=== PATIENT | female | born 1945 | race American Indian/Alaskan Native ===

== ENCOUNTER 2020-06-26 13:58 | Emergency (ER) | payer MEDICARE ==
--- NOTE | 2020-06-26 14:12 | Event Note ---
ED Screening Note Date of service: 06/26/20 Time: 14:10 ED Screening Note: Patient was brought in by her son with complaints of strokelike symptoms. Son reports that 4 days ago he noticed that patient has had increasing weakness in her right upper and right lower extremity, and she is been having difficulty focusing and expressing herself. He states that she had a stroke 3 years ago with right sided residual deficit with mainly in her right upper extremity. He states that he offered to bring her 4 days ago but she did not want to come to the hospital. She went to a local primary care doctor today and told her she need to come to the ER. This initial assessment/diagnostic orders/clinical plan/treatment(s) is/are subject to change based on patients health status, clinical progression and re- assessment by fellow clinical providers in the ED. Further treatment and workup at subsequent clinical providers discretion. Patient/guardian urged not to elope from the ED as their condition may be serious if not clinically assessed and managed. Initial orders include: Labs, EKG, chest x-ray, head CT
--- NOTE | 2020-06-26 14:45 | XRay Report ---
CHEST 2 VIEWS INDICATION: CVA. COMPARISON: None FINDINGS: Support devices: None. Heart: Within normal limits. Lungs/pleura: No acute air space or interstitial disease. No pneumothorax. Additional findings: None. IMPRESSION: No acute findings. Signer Name: Robb Patterson Jr, MD Signed: 06/26/2020 2:40 PM Workstation Name: [id number]
[2020-06-26 15:18] LABS: Basophils # (Auto) 0.1 K/mm3 (0.0-0.1); Basophils % (Auto) 0.9 % (0.0-1.8); Eosinophils # (Auto) 0.3 K/mm3 (0.0-0.4); Eosinophils % (Auto) 5.6 % (0.0-4.3); Hematocrit 44.4 % (30.3-42.9); Hemoglobin 14.2 gm/dl (10.1-14.3); Lymphocytes # (Auto) 1.8 K/mm3 (1.2-5.4); Lymphocytes % (Auto) 31.4 % (13.4-35.0); Mean Corpuscular HGB Conc 32 % (30-34); Mean Corpuscular Volume 98 fl (79-97); Monocytes # (Auto) 0.6 K/mm3 (0.0-0.8); Monocytes % (Auto) 9.7 % (0.0-7.3); Platelet Count 246 K/mm3 (140-440); Red Blood Count 4.54 M/mm3 (3.65-5.03); Red Cell Distribution Width 14.8 % (13.2-15.2)
[2020-06-26 15:28] LABS: INR 0.99 (0.87-1.13)
[2020-06-26 15:29] LABS: Partial Thromboplastin Time 29.8 Sec. (24.2-36.6)
--- NOTE | 2020-06-26 15:37 | Cat Scan Report ---
CT HEAD WITHOUT CONTRAST INDICATION / CLINICAL INFORMATION: Right-sided weakness 4 days ago. TECHNIQUE: Axial imaging performed from the skull apex through the skull base without the use of cont rast. Sagittal and coronal reformatted images. All CT scans at this location are performed using CT dose reduction for ALARA by means of automated exposure control. COMPARISON: MR brain dated 02/16/2016 FINDINGS: CEREBRAL PARENCHYMA: There is a large area of edema throughout the left frontal white matter measurin g up to 6.4 x 3.7 cm in axial plane. Mild sulcal effacement is present in the left frontal region. Un derlying mass in this area is suspected until proven otherwise. Age-appropriate cortical volume loss is noted. No chronic infarct. The remaining brain parenchyma is unremarkable. HEMORRHAGE: None. EXTRA-AXIAL SPACES: Normal in size and morphology for the patient's age. VENTRICULAR SYSTEM: Normal in size and morphology for the patient's age. MIDLINE SHIFT OR HERNIATION: None. CEREBELLUM / BRAINSTEM: No significant abnormality. CALVARIUM: No significant abnormality. ORBITS: Normal as visualized. PARANASAL SINUSES / MASTOID AIR CELLS: Normal as visualized. SOFT TISSUES of HEAD: No significant abnormality. ADDITIONAL FINDINGS: None. IMPRESSION: Large area of edema is identified throughout the left frontal lobe concerning for an underlying brain mass. Underlying abscess could also be considered. Further evaluation with MRI with and without cont rast is recommended. Signer Name: Robb Patterson Jr, MD Signed: 06/26/2020 3:32 PM Workstation Name: [id number]
[2020-06-26 15:38] LABS: Alanine Aminotransferase 19 units/L (7-56); Albumin 3.8 g/dL (3.9-5); Blood Urea Nitrogen 15 mg/dL (7-17); Calcium 9.4 mg/dL (8.4-10.2); Hemolysis Index 9
[2020-06-26 15:44] LABS: BUN/Creatinine Ratio 25
--- NOTE | 2020-06-26 19:50 | Emergency Department Report ---
ED Neuro Deficit HPI - General Chief Complaint: Neuro Symptoms/Deficit Stated Complaint: POSSIBLE STROKE/RT ARM/LEG NO MOTION Time Seen by Provider: 06/26/20 14:09 Source: patient Mode of arrival: Ambulatory Limitations: No Limitations - History of Present Illness Initial Comments: Chief complaint: "I had a stroke." HPI: This is a 75-year-old female with history of CVA, hypertension, tobacco dependence who presents with right-sided weakness and speech disturbance. Symptoms onset on 4 days ago. Patient refused medical care. Patient was evaluated by PCP today. PCP referred patient to the emergency department. Patient has right arm right leg weakness. She has trouble getting her words out. -: Gradual, days(s) (4 days) Location: speech, right arm, right leg History of same: Yes (r hand numbness residual) Severity: moderate Quality: weak Improves With: none Worsens With: none On Anticoagulants: No Context: gradual onset Associated Symptoms: other (speech difficulty, right arm/leg weakness) - Related Data Home Medications: Previous Rx's Medication Instructions Recorded Last Taken Type methOCARBAMOL [Robaxin TAB] 500 mg PO BID #14 tab 02/21/13 Unknown Rx traMADoL [Ultram 50 MG tab] 50 mg PO Q4HR PRN #15 tablet 02/21/13 Unknown Rx Aspirin 325 mg PO QDAY #30 tablet 02/16/16 Unknown Rx Simvastatin (Nf) [Zocor TAB] 20 mg PO QHS #30 tablet 02/16/16 Unknown Rx amLODIPine 5 mg PO QDAY tablet 02/16/16 Unknown Rx atenoloL [Tenormin] 25 mg PO QDAY tablet 02/16/16 Unknown Rx Allergies/Adverse Reactions: Allergies Allergy/AdvReac Type Severity Reaction Status Date / Time Penicillins Allergy Rash Verified 02/21/13 13:47 ED Review of Systems ROS: Stated complaint: POSSIBLE STROKE/RT ARM/LEG NO MOTION Other details as noted in HPI Comment: All other systems reviewed and negative Constitutional: denies: fever, malaise Respiratory: denies: cough, shortness of breath Cardiovascular: denies: chest pain Gastrointestinal: denies: abdominal pain, nausea, vomiting Neurological: weakness ED Past Medical Hx - Past Medical History Previous Medical History?: Yes Hx Hypertension: Yes Hx CVA: Yes (RT arm weakness) - Surgical History Past Surgical History?: Yes Additional Surgical History: carpel tunnel sx to left hand - Social History Smoking Status: Current Every Day Smoker Substance Use Type: Alcohol - Medications Home Medications: Home Medications Medication Instructions Recorded Confirmed Last Taken Type methOCARBAMOL [Robaxin TAB] 500 mg PO BID #14 tab 02/21/13 02/15/16 Unknown Rx traMADoL [Ultram 50 MG tab] 50 mg PO Q4HR PRN #15 tablet 02/21/13 02/15/16 Unknown Rx Aspirin 325 mg PO QDAY #30 tablet 02/16/16 Unknown Rx Simvastatin (Nf) [Zocor TAB] 20 mg PO QHS #30 tablet 02/16/16 Unknown Rx amLODIPine 5 mg PO QDAY tablet 02/16/16 Unknown Rx atenoloL [Tenormin] 25 mg PO QDAY tablet 02/16/16 Unknown Rx ED Neuro Physical Exam - General Limitations: No Limitations General appearance: alert, in no apparent distress Suspected Stroke: Yes - Head Head exam: Present: atraumatic, normocephalic - Eye Eye exam: Present: normal appearance - ENT ENT exam: Present: mucous membranes moist - Neck Neck exam: Present: normal inspection, full ROM - Respiratory Respiratory exam: Present: normal lung sounds bilaterally. Absent: respiratory distress, wheezes, rales, rhonchi - Cardiovascular Cardiovascular Exam: Present: regular rate, normal rhythm, normal heart sounds. Absent: systolic murmur, diastolic murmur, rubs, gallop - GI/Abdominal GI/Abdominal exam: Present: soft, normal bowel sounds. Absent: distended, tenderness, guarding, rebound - Extremities Exam Extremities exam: Present: other (right hand in fist ) - Back Exam Back exam: Present: normal inspection - Neurological Exam Neurological exam: Present: alert, oriented X3 - NIHSS Assessment Interval: Baseline 1a. Level of Consciousness: alert/keenly responsive 1b. LOC Questions: answers 1 question correctly 1c. LOC Commands: performs tasks correctly 2. Best Gaze: normal 3. Visual: no visual loss 4. Facial Palsy: normal symmetrical movement 5b. Motor Arm Right: drift 5a. Motor Arm Left: no drift 6a. Motor Leg Left: no drift 6b. Motor Leg Right: some gravity effort 7. Limb Ataxia: absent 8. Sensory: mild/moderate sensory loss 9. Best Language: mild/moderate aphasia 10. Dysarthria: normal 11. Extinction/Inattention: no abnormality Total Score: 6 Stroke Severity: Moderate Stroke - Psychiatric Psychiatric exam: Present: normal affect, normal mood - Skin Skin exam: Present: warm, dry, intact, normal color. Absent: rash ED Course Vital Signs 06/26/20 14:07 Temperature 98.2 F Pulse Rate 64 Respiratory 18 Rate Blood Pressure 153/81 [Right] O2 Sat by Pulse 99 Oximetry - Lab Data Result diagrams: 06/26/20 14:59 06/26/20 14:59 Lab Results 06/26/20 06/26/20 06/26/20 Range/Units 14:14 14:59 14:59 WBC 5.8 (4.5-11.0) K/mm3 RBC 4.54 (3.65-5.03) M/mm3 Hgb 14.2 (10.1-14.3) gm/dl Hct 44.4 H (30.3-42.9) % MCV 98 H (79-97) fl MCH 31 (28-32) pg MCHC 32 (30-34) % RDW 14.8 (13.2-15.2) % Plt Count 246 (140-440) K/mm3 Lymph % (Auto) 31.4 (13.4-35.0) % [place] % (Auto) 9.7 H (0.0-7.3) % Eos % (Auto) 5.6 H (0.0-4.3) % Baso % (Auto) 0.9 (0.0-1.8) % Lymph # (Auto) 1.8 (1.2-5.4) K/mm3 [place] # (Auto) 0.6 (0.0-0.8) K/mm3 Eos # (Auto) 0.3 (0.0-0.4) K/mm3 Baso # (Auto) 0.1 (0.0-0.1) K/mm3 Seg Neutrophils % 52.4 (40.0-70.0) % Seg Neutrophils # 3.0 (1.8-7.7) K/mm3 PT 12.9 (12.2-14.9) Sec. INR 0.99 (0.87-1.13) APTT 29.8 (24.2-36.6) Sec. Sodium (137-145) mmol/L Potassium (3.6-5.0) mmol/L Chloride (98-107) mmol/L Carbon Dioxide (22-30) mmol/L Anion Gap mmol/L BUN (7-17) mg/dL Creatinine (0.6-1.2) mg/dL Estimated GFR ml/min BUN/Creatinine Ratio % Glucose (65-100) mg/dL POC Glucose 83 (70-105) mg/dL Calcium (8.4-10.2) mg/dL Total Bilirubin (0.1-1.2) mg/dL AST (5-40) units/L ALT (7-56) units/L Alkaline Phosphatase (35-129) units/L Troponin T (0.00-0.029) ng/mL Total Protein (6.3-8.2) g/dL Albumin (3.9-5) g/dL Albumin/Globulin Ratio % Lipase (13-60) units/L 06/26/20 Range/Units 14:59 WBC (4.5-11.0) K/mm3 RBC (3.65-5.03) M/mm3 Hgb (10.1-14.3) gm/dl Hct (30.3-42.9) % MCV (79-97) fl MCH (28-32) pg MCHC (30-34) % RDW (13.2-15.2) % Plt Count (140-440) K/mm3 Lymph % (Auto) (13.4-35.0) % [place] % (Auto) (0.0-7.3) % Eos % (Auto) (0.0-4.3) % Baso % (Auto) (0.0-1.8) % Lymph # (Auto) (1.2-5.4) K/mm3 [place] # (Auto) (0.0-0.8) K/mm3 Eos # (Auto) (0.0-0.4) K/mm3 Baso # (Auto) (0.0-0.1) K/mm3 Seg Neutrophils % (40.0-70.0) % Seg Neutrophils # (1.8-7.7) K/mm3 PT (12.2-14.9) Sec. INR (0.87-1.13) APTT (24.2-36.6) Sec. Sodium 139 (137-145) mmol/L Potassium 3.9 (3.6-5.0) mmol/L Chloride 102.1 (98-107) mmol/L Carbon Dioxide 28 (22-30) mmol/L Anion Gap 13 mmol/L BUN 15 (7-17) mg/dL Creatinine 0.6 (0.6-1.2) mg/dL Estimated GFR > 60 ml/min BUN/Creatinine Ratio 25 % Glucose 120 H (65-100) mg/dL POC Glucose (70-105) mg/dL Calcium 9.4 (8.4-10.2) mg/dL Total Bilirubin 0.30 (0.1-1.2) mg/dL AST 27 (5-40) units/L ALT 19 (7-56) units/L Alkaline Phosphatase 72 (35-129) units/L Troponin T < 0.010 (0.00-0.029) ng/mL Total Protein 7.9 (6.3-8.2) g/dL Albumin 3.8 L (3.9-5) g/dL Albumin/Globulin Ratio 0.9 % Lipase 23 (13-60) units/L - EKG Data -: EKG Interpreted by Dc EKG shows normal: sinus rhythm, axis, intervals Rate: normal 06/26/20 19:53 EKG obtained 1420 EKG interpreted by mo NSR rate 65 bpm nl axix prolonged QTC +LVH no ST elevation nonspecific T wave pattern - Radiology Data Radiology results: report reviewed Patient Name: DYAN CORONEL Gender: Female Date of : 1945 Referring Provider: JOSSELINE WATSON Organization: [facility] Accession Number: [id number] Requested Date: June 26, 2020 14:10 Report Status: Final Requested Procedure: 1 Procedure Description: CT head/brain wo con Modality: CT Findings Reporting MD: Robb Patterson Dictation Time: June 26, 2020 14:32 Human Resources Support Specialist: Not available Residential Sales Associate Date: CT HEAD WITHOUT CONTRAST INDICATION / CLINICAL INFORMATION: Right-sided weakness 4 days ago. TECHNIQUE: Axial imaging performed from the skull apex through the skull base without the use of contrast. Sagittal and coronal reformatted images. All CT scans at this location are performed using CT dose reduction for ALARA by means of automated exposure control. COMPARISON: MR brain dated 02/16/2016 FINDINGS: CEREBRAL PARENCHYMA: There is a large area of edema throughout the left frontal white matter measuring up to 6.4 x 3.7 cm in axial plane. Mild sulcal effacement is present in the left frontal region. Underlying mass in this area is suspected until proven otherwise. Age-appropriate cortical volume loss is noted. No chronic infarct. The remaining brain parenchyma is unremarkable. HEMORRHAGE: None. EXTRA-AXIAL SPACES: Normal in size and morphology for the patient's age. VENTRICULAR SYSTEM: Normal in size and morphology for the patient's age. MIDLINE SHIFT OR HERNIATION: None. CEREBELLUM / BRAINSTEM: No significant abnormality. CALVARIUM: No significant abnormality. ORBITS: Normal as visualized. PARANASAL SINUSES / MASTOID AIR CELLS: Normal as visualized. SOFT TISSUES of HEAD: No significant abnormality. ADDITIONAL FINDINGS: None. IMPRESSION: Large area of edema is identified throughout the left frontal lobe concerning for an underlying brain mass. Underlying abscess could also be considered. Further evaluation with MRI with and without contrast is re commended. Signer Name: Robb Patterson Jr, MD Signed: 06/26/2020 2:32 PM Workstation Name: [id number] Chest radiograph: No acute findings - Medical Decision Making Intracerebral mass causing speech disturbance and right arm right leg weakness, GCS 14. Dr. Otto Zhang neurosurgeon on-call recommended transfer to [facility]. I spoke with transfer call center supervisor who arranged conference call with myself, Dr. Wild hospitalist and Dr. Zhang neurosurgeon. Patient is accepted to [facility]. Transferred in stable condition. Critical Care Time: Yes Critical care time in (mins) excluding proc time.: 40 Critical care attestation.: If time is entered above; I have spent that time in minutes in the direct care of this critically ill patient, excluding procedure time. 40 minutes of critical care time excluding procedures were used in the care of the patient. I came immediately to the bedside upon patient's arrival to treatment room. I discussed treatment plan with the nursing team members. I reviewed electronic record. I spoke with Dr. Zhang [facility] ED Disposition Clinical Impression: Intracerebral mass, Acute right-sided weakness, Speech disturbance Disposition: DC/TX-70 ANOTHER TYPE HLTHCARE Is pt being admited?: No Does the pt Need Aspirin: No Condition: Stable Referrals: PRIYANK JORGE MD [Primary Care Provider] - 3-5 Days
[2020-06-26] MEDS ORDERED: VALSARTAN 40 MG TAB PO ONE (20:56)
[2020-06-26 21:42] VITALS: BP 187/96
--- NOTE | 2020-06-29 11:38 | Electrocardiograph Report ---
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
== END 2020-06-26 21:52 | disposition other institution (70) ==
LOC: ED 13:58
DX: R90.0 Intracranial space-occupying lesion found on diagnostic imaging of central nervous system (principal); R47.9 Unspecified speech disturbances; R53.1 Weakness; I10 Essential (primary) hypertension; F17.200 Nicotine dependence, unspecified, uncomplicated; Z79.899 Other long term (current) drug therapy; Z88.0 Allergy status to penicillin
CPT/HCPCS: 36415; 70450; 71046; 80053; 82962; 83690; 84484; 85025; 85610; 85730; 93005